=== PATIENT | male | born 1955 | race Caucasian/White ===

== ENCOUNTER → 2023-09-21 15:04 | Outpatient (CLI) | payer MEDICARE, SELFPAY ==
--- NOTE | ~2023-09-21 | XR_ITS ---
XR shoulder RT min 2V DATE: 09/21/2023 15:15 INDICATION: Chronic bilateral shoulder pain for years TECHNIQUE: 4 views COMPARISON: None FINDINGS: There is joint space narrowing and mild spurring at the right acromioclavicular joint. Ther e is periarticular spurring at the glenohumeral joint. No fracture or dislocation, periosteal reaction or bone destruction. No abnormal soft tissue calcific ation of the right shoulder. Diffuse idiopathic skeletal hyperostosis of the thoracic spine. IMPRESSION: Degenerative change of the right acromioclavicular joint Glenohumeral osteoarthritis Reviewed, dictated and finalized at location A.
--- NOTE | ~2023-09-21 | XR_ITS ---
XR shoulder LT min 2V DATE: 09/21/2023 15:15 INDICATION: Chronic bilateral shoulder pain for years TECHNIQUE: 4 views COMPARISON: None FINDINGS: There is joint space narrowing and mild spurring at the left acromioclavicular joint. Mild osteoarthritis at the glenohumeral joint. No fracture or dislocation, periosteal reaction or bone destruction or abnormal soft tissue calcifica tion is detected. IMPRESSION: Mild degenerative change at the acromion clavicular joint and mild osteoarthritis at the glenohumeral joint Reviewed, dictated and finalized at location A.
== END ==
PROVIDERS: PCP Family Medicine; Visit Provider Family Medicine
DX: M19.011 Primary osteoarthritis, right shoulder (principal); M19.012 Primary osteoarthritis, left shoulder; M25.512 Pain in left shoulder; M25.511 Pain in right shoulder; G89.29 Other chronic pain
CPT/HCPCS: 73030

== ENCOUNTER 2023-12-28 13:38 | Outpatient (CLI) | payer MEDICARE, SELFPAY ==
--- NOTE | ~2023-12-28 | CT_ITS ---
EXAMINATION: CTA chest PE protocol DATE: 12/28/2023 14:07 INDICATION: Sudden onset of dyspnea one week ago. Chest pain. TECHNIQUE: Computed tomography angiography (CTA) of the chest was performed with 100 mL Omnipaque-350 intravenous contrast timed to evaluate the pulmonary arteries. Coronal maximum intensity projection 3D-reconstructions were created by the technologist. Automated exposure control and iterative reconst ruction technique were employed. Exam dose: 890.26 mGy-cm total exam DLP. COMPARISON: None. FINDINGS: There is diagnostic contrast enhancement of the pulmonary arteries and evidence of extensiv e bilateral pulmonary emboli including bilateral saddle emboli and emboli extending into all lobes. Normal heart size. No pericardial or pleural effusion. No thoracic aortic aneurysm or dissection. No hilar or mediastinal mass lesion or lymphadenopathy. Very slight posterior segment right upper lobe infiltrate. The lungs are otherwise clear of infiltrat e or consolidation. Normal morphology of the adrenal glands. Several exophytic cysts of the included portion of the right kidney, measuring up to 9.3 cm. Cervical, thoracic and lumbar spondylosis. IMPRESSION: Extensive bilateral pulmonary emboli including bilateral saddle emboli, involving all lo bes Dr. Parnell telephoned the report on December 28, [address] Spears. Reviewed, dictated and finalized at Location A. Reviewed, dictated and finalized at location L. T EXPERIENCE SPECIALIST IMPRESSION: Extensive bilateral pulmonary emboli including bilateral saddle em boli, involving all lobes Dr. Parnell telephoned the report on December 28, 20[address] Spears.
[2023-12-28 13:58] LABS: Estimated Glomerular Filt Rate > 60
== END 2023-12-28 13:39 | disposition home or self-care (01) ==
LOC: ANHIMG 13:39
PROVIDERS: PCP Family Medicine; Visit Provider Family Medicine
DX: R06.00 Dyspnea, unspecified (principal); I26.99 Other pulmonary embolism without acute cor pulmonale
CPT/HCPCS: 71275; Q9967

== ENCOUNTER 2023-12-28 14:26 | Emergency (ER) | payer MEDICARE, SELFPAY ==
[2023-12-28] VITALS (14 sets, daily range): BP systolic 142–170; BP diastolic 77–92; PULSE 60–69; RESP 12–23; TEMP 36.7; O2SAT 93–100
--- NOTE | ~2023-12-28 | XR_ITS ---
EXAMINATION: XR chest 1V portable DATE: 12/28/2023 15:03 INDICATION: Shortness of breath. TECHNIQUE: A single frontal view of the chest was obtained. COMPARISON: Chest CT 12/28/2023 FINDINGS: There is no pneumonia, pleural effusion, or pneumothorax. The heart size is normal. IMPRESSION: 1. No acute cardiopulmonary disease. Reviewed, dictated and finalized at location A. TEGIC SOURCING CONSULTANT
--- NOTE | 2023-12-28 14:50 | ECG_ITS ---
Measurements Intervals [place] Rate: 59 P: 26 NH: 180 QRS: -22 QRSD: 96 T: 24 QT: 412 QTc: 411 Interpretive Statements SINUS BRADYCARDIA BORDERLINE LEFT AXIS DEVIATION [QRS AXIS < -20] POOR R-WAVE PROGRESSION BORDERLINE ECG NO PREVIOUS ECG AVAILABLE FOR COMPARISON Electronically Signed On 12-29-2023 7:04:14 [employer] BLE[employer]ANGE BACK TENDER by Nba Coe M.D.
[2023-12-28 15:03] LABS: Basophils Percent Auto 0.6 % (0.2-1.2); Eosinophils Absolute Auto 0.2 K/mm3 (0-0.3); Eosinophils Percent Auto 2.4 % (0-4.4); Hematocrit 43.8 % (42.0-52.0); Hemoglobin 14.1 g/dL (14.0-18.0); Immature Granulocyte Absolute 0.02 K/mm3 (0.00-0.031); Immature Granulocyte Percent A 0.3 % (0-0.5); Lymphocytes Absolute Auto 1.29 K/mm3 (0.9-3.2); Mean Corpuscular HGB Conc 32.2 g/dl (32-36); Mean Corpuscular Hemoglobin 30.8 pg (26-34); Mean Corpuscular Volume 95.6 fl (80-100); Mean Platelet Volume 9.7 fl (7.4-10.4); Monocytes Absolute Auto 0.8 K/mm3 (0.1-0.6); Monocytes Percent Auto 11.2 % (2.6-8.5); Neutrophils Absolute Auto 4.5 K/mm3 (1.3-6.7); Neutrophils Percent Auto 66.5 % (45.5-73.1); Platelet Count Result 194 k/mm3 (150-375); Red Blood Count 4.58 M/mm3 (4.6-6.20); Red Cell Distribution Width 13.2 % (11.5-14.5); White Blood Count 6.8 K/mm3 (4.5-10.0)
[2023-12-28 15:14] LABS: INR 1.1; Prothrombin Time 14.8 Seconds (11.1-14.7)
[2023-12-28 15:15] LABS: Partial Thromboplastin Time 28.5 SECONDS (22.3-36.8)
[2023-12-28 15:17] LABS: Alanine Aminotransferase 23 U/L (6-50); Albumin Level 4.4 g/dL (3.5-5.1); Alkaline Phosphatase 104 U/L (38-126); Anion Gap 10 mmol/L (8-16); Aspartate Amino Transferase 32 U/L (17-59); Bilirubin,Total 1.2 mg/dL (0.2-1.3); Blood Urea Nitrogen 18 mg/dL (9-20); Calcium 9.4 mg/dL (8.4-10.2); Carbon Dioxide 28 mmol/L (22-30); Chloride 101 mmol/L (98-107); Estimated CRCL calculation 117 ml/min; Estimated Glomerular Filt Rate > 60; Glucose 106 mg/dL (65-110); Potassium 4.5 mmol/L (3.4-5.0); Sodium 139 mmol/L (137-145)
[2023-12-28] MEDS: HEPARIN SOD/D5W 100 UNITS/ML 25,000 UNITS/250 ML BAG 15 UNITS IV CONT (15:24)
[2023-12-28] MEDS: HEPARIN SODIUM 5,000 UNITS/ML VIAL 8000 UNITS IV PUSH (15:25)
--- NOTE | 2023-12-28 15:25 | ED.SOB ---
HPI - SOB/Dyspnea General Chief Complaint: Recheck/Abnormal Lab/Rx Stated Complaint: sent from CT Time Seen by Provider: 12/28/23 14:50 History of Present Illness HPI Narrative: The patient states that over the last week he has been having increasing shortness of breath with exertion, normally at rest he has no issues, however when he is going up the stairs he gets some shortness of breath. His doctor ordered a CT PE, the tech noticed that there were large amounts of clots, and he was sent to the emergency room. The patient does have history of DVT, however he was told that they were all provoked, 1 was after his surgery, and otherwise after prolonged amount of driving and he is not on any blood thinners. Related Data Home Medications Medication Instructions Recorded Confirmed bimatoprost 0.01 % eye drops 1 drp EACH EYE DAILY 09/21/23 12/28/23 ([facility]) rosuvastatin 10 mg tablet 10 mg PO .COMPLEX 09/21/23 12/28/23 timolol 0.25 % eye drops 1 drp EACH EYE Q12H 09/21/23 12/28/23 Allergies Allergy/AdvReac Type Severity Reaction Status Date / Time No Known Allergies Allergy Verified 12/28/23 14:55 Review of Systems Review of Systems: All systems reviewed & are unremarkable except as noted in HPI and below PMFSH Past Medical History Medical History Arthritis Surgical History Surgical History H/O angioplasty At age 36 H/O bilateral hip replacements Family History Family History Father Heart problem Social History Social History Smoking status: Never smoker Alcohol intake: current Substance use: never Do You Feel Safe in your Home?: Yes Lack of Transportation: No Lack of Food: Never True Current Housing: I Have Housing Concerned About Future Housing: No Difficulty Paying Gas/Electric Bills: No Difficulty Paying for Meds: No Currently Unemployed: No Education: Master's Degree or Higher Difficulty w/ Childcare or Family Care: No Exam Narrative: EXAMINATION OF ORGAN SYSTEMS/BODY AREAS: Constitutional: Vital signs per nursing GENERAL:[No acute distress, non-toxic appearing.] HEAD: Normal with no signs of head trauma. EYES: EOMI, conjunctiva normal ENT: Hearing grossly intact LUNGS: Nonlabored breathing. HEART: [Regular rate and rhythm] ABD: [Soft], [nontender to palpation] EXT: Normal range of motion SKIN: [No rashes or lesions.] NEURO: [Alert and oriented x 3. No gross focal sensory or strength deficits.] PSYCH: Normal affect Course Vital Signs Vital signs: Vital Signs Temperature 98.1 F 12/28/23 14:31 Pulse Rate 69 12/28/23 14:31 Respiratory Rate 16 12/28/23 14:31 Blood Pressure 170/77 H 12/28/23 14:31 Pulse Oximetry 100 12/28/23 14:31 Oxygen Delivery Room Air 12/28/23 14:31 Temperature 98.1 F 12/28/23 14:31 Pulse Rate 65 12/28/23 16:02 Respiratory Rate 17 12/28/23 16:02 Blood Pressure 168/84 H 12/28/23 15:31 Pulse Oximetry 98 12/28/23 16:02 Oxygen Delivery Room Air 12/28/23 15:28 MDM - SOB/Dyspnea MDM Narrative Medical decision making narrative: 68-year-old male presenting with shortness of breath for the last week, he is well-appearing on exam with normal vital signs, nonlabored respirations, EKG - 12-Lead: Performed at 59. Interpreted by me. [Sinus rhythm]. Rate 59. [Normal] axis. MI-interval [normal]. QRS duration [normal]. QTc [normal]. [No ST segment elevation or depression]. [T-wave normal]. Impression: No EKG evidence of acute ischemia or dysrhythmia. his doctor sent him to the hospital for CT pulmonary embolism, and the tech noticed numerous large PEs, brought him to the emergency room. I did independently review and interpret CT myself, I did also note b
[2023-12-28 15:26] LABS: NT Pro B Type Natriuretic Pept 177 pg/mL (19.9-100); Troponin I 0.012 ng/mL (0.000-0.034)
== END 2023-12-28 17:43 | disposition short-term general hospital (02) ==
PROVIDERS: Emergency Medicine; Emergency Provider Emergency Medicine; PCP Family Medicine
DX: I26.99 Other pulmonary embolism without acute cor pulmonale (principal); M19.90 Unspecified osteoarthritis, unspecified site; Z98.61 Coronary angioplasty status; Z86.718 Personal history of other venous thrombosis and embolism; Z96.643 Presence of artificial hip joint, bilateral; R00.1 Bradycardia, unspecified; R94.31 Abnormal electrocardiogram [ECG] [EKG]
CPT/HCPCS: 36415; 71045; 71275; 80053; 83880; 84484; 85025; 85610; 85730; 93005; 96365; 96366; 99291; J1644; Q9967

== ENCOUNTER 2024-03-29 08:39 | Outpatient (CLI) | payer MEDICARE, SELFPAY ==
--- NOTE | ~2024-03-29 | US_ITS ---
EXAMINATION:US venous doppler LE BI INDICATION:Acute DVT TECHNIQUE: Multiple grayscale, color flow and Doppler images of the right and left lower extremity de ep venous systems were obtained and reviewed. COMPARISON:No prior studies for comparison. FINDINGS: The common femoral, superficial femoral and popliteal veins demonstrate normal respiratory variation, augmentation and compressibility. Color flow is also seen within the posterior tibial, pe roneal, greater saphenous and profunda veins. IMPRESSION: 1: No lower extremity deep venous thrombosis. Reviewed, dictated and finalized at location B.
== END 2024-03-29 08:40 | disposition home or self-care (01) ==
PROVIDERS: PCP Family Medicine; Visit Provider Internal Medicine Hematology & Oncology
DX: I82.411 Acute embolism and thrombosis of right femoral vein (principal)
CPT/HCPCS: 93970

== ENCOUNTER 2024-06-19 08:08 | Emergency (ER) | payer MEDICARE, SELFPAY ==
[2024-06-19 08:13] VITALS: BP 144/84; PULSE 56; RESP 16; TEMP 37; O2SAT 100
--- NOTE | 2024-06-19 08:27 | ED.SKABFB ---
HPI - Skin/Abscess/Foreign Bdy General Chief complaint: Skin/Abscess/Foreign Body Stated complaint: RASH ABOVE L ANKLE Time Seen by Provider: 06/19/24 08:33 Source: patient and RN notes reviewed Mode of arrival: ambulatory Limitations: dementia History of Present Illness HPI narrative: 68-year-old male presents with concern for redness, swelling, tenderness to the left inner ankle. Reports symptoms started 3 days ago. He reports he had body aches on Monday which have resolved. He reports he has had similar infection and was treated successfully with Bactrim by his primary care doctor. He does have a history of blood clots in his left extremity, he is on Xarelto. MD complaint: other (Redness) Related Data Home Medications Medication Instructions Recorded Confirmed bimatoprost 0.01 % eye drops 1 drp EACH EYE DAILY 09/21/23 06/19/24 ([place]) timolol 0.25 % eye drops 1 drp EACH EYE Q12H 09/21/23 06/19/24 rivaroxaban 15 mg (42)-20 mg (9) See Rx Instructions PO .COMPLEX 01/03/24 06/19/24 tablets in a starter pack (Xarelto DVT-PE Treatment 30-Day Starter) Allergies Allergy/AdvReac Type Severity Reaction Status Date / Time No Known Allergies Allergy Verified 06/19/24 08:22 Review of Systems Review of Systems: CONSTITUTIONAL: Denies malaise, chills, sweats, or fever. EYES: Denies redness, or discharge. ENT: Denies rhinorrhea, congestion, swollen lips, swollen tongue CARDIOVASCULAR: Denies chest pain, palpitations, or edema. RESPIRATORY: Denies cough or dyspnea. GASTROINTESTINAL: Denies abdominal pain, nausea, vomiting SKIN: Reports redness, swelling, warmth, tenderness to the left ankle. Denies purulent drainage, vesicles, bullae, numbness, pain beyond proportion MUSCULOSKELETAL: Denies joint pain. Reports myalgia. NEUROLOGIC: Denies headache. All systems reviewed & are unremarkable except as noted in HPI and below PMFSH Past Medical History Medical History Arthritis Deep vein thrombosis (DVT) of left lower extremity 12/28/2023; R distal femoral vein, popliteal vein and veins of right upper calf Pulmonary embolism, bilateral 12/28/2023; extensive bilateral pulmonary emboli including bilateral saddle emboli and emboli extending into all lobes Surgical History Surgical History H/O angioplasty At age 36 H/O bilateral hip replacements Family History Family History Father Heart problem Social History Social History Smoking status: Never smoker Alcohol intake: current Substance use: never Do You Feel Safe in your Home?: Yes Lack of Transportation: No Lack of Food: Never True Current Housing: I Have Housing Concerned About Future Housing: No Difficulty Paying Gas/Electric Bills: No Difficulty Paying for Meds: No Currently Unemployed: No Education: Master's Degree or Higher Difficulty w/ Childcare or Family Care: No Comments At time of signature, agree with nursing past medical, surgical, social and family history. There is no relevant family history pertinent to the presenting complaint Exam Narrative: GENERAL: Well-appearing, well-nourished, and in no acute distress. HEAD: Normocephalic, atraumatic. EYES: PERRLA, conjunctivae clear ENT: Mucous membranes moist. NECK: Supple. No lymphadenopathy CHEST: Clear to auscultation. No respiratory distress. HEART: Regular rate and rhythm. SKIN: Warm, dry. Erythema, induration, tenderness, warmth with sharp margins noted above left inner ankle. No vesicles, bullae, necrosis, ecchymosis, crepitus noted. NEURO: Alert and oriented x3. PSYCH: Normal mood and affect Course Course Emergency Course: Patient is aware of diagnosis, understands and agrees to treatment plan. Anticipatory guidance g
== END 2024-06-19 08:50 | disposition home or self-care (01) ==
PROVIDERS: Emergency Provider Nurse Practitioner; PCP Family Medicine
DX: L03.116 Cellulitis of left lower limb (principal); M19.90 Unspecified osteoarthritis, unspecified site; Z86.718 Personal history of other venous thrombosis and embolism; Z86.711 Personal history of pulmonary embolism; Z96.643 Presence of artificial hip joint, bilateral; Z98.61 Coronary angioplasty status; Z79.01 Long term (current) use of anticoagulants
CPT/HCPCS: 99213; G0463